=== PATIENT | male | born 1980 | race Two or more races ===

== ENCOUNTER 2017-02-01 03:42 | Emergency (ER) | payer SELFPAY ==
[~2017-02-01] VITALS: Ht 172.7 cm; Wt 77.1 kg
--- NOTE | 2017-02-01 03:46 | NUR ---
PT C/O PAIN 01/28 LEFT ANKLE AND KNEE, PT STATES HE SLIPPED AT WORK, STATES HE WASNT WEARING NON SLIP SHOES, PT IS ALERT, ORIENTED X 4, NO RESP DISTRESS NOTED OR REPORTED UPON ASSESSMENT... MD AT BEDSIDE...
[2017-02-01] MEDS ORDERED: CITA10TA9 PO (03:50)
[2017-02-01 04:15] VITALS: BP 143/89
--- NOTE | 2017-02-01 04:15 | NUR ---
Patient discharged to home in stable conditon. Written and verbal after care instructions given. Patient verbalizes understanding of instructions. pt walked out of ER unassisted with belongings at side...
== END 2017-02-01 04:17 | disposition home or self-care (01) ==
LOC: ER 03:47
DX: S80.02XA Contusion of left knee, initial encounter (principal); W01.0XXA Fall on same level from slipping, tripping and stumbling without subsequent striking against object, initial encounter; Y93.89 Activity, other specified; Y99.8 Other external cause status; Y92.89 Other specified places as the place of occurrence of the external cause
CPT/HCPCS: A4663